=== PATIENT | female | born 1990 | race American Indian/Alaskan Native ===

== ENCOUNTER 2018-11-14 22:26 | Emergency (ER) | payer SELFPAY | END 2018-11-14 22:59 | disposition left against medical advice (07) | LOC: ED 22:26 | DX: L29.2 Pruritus vulvae (principal); Z53.21 Procedure and treatment not carried out due to patient leaving prior to being seen by health care provider ==

== ENCOUNTER 2021-04-03 00:11 | Outpatient (CLI) | payer MEDICAID ==
[2021-04-03 00:38] VITALS: BP 142/87
== END 2021-04-03 03:15 | disposition home or self-care (01) ==
LOC: TRG 00:11 → APU 00:12 → TRG 03:15
PROVIDERS: ATTEND Obstetrics & Gynecology
DX: O47.1 False labor at or after 37 completed weeks of gestation (principal); Z3A.38 38 weeks gestation of pregnancy
CPT/HCPCS: 59025